=== PATIENT | female | born 1970 | race Caucasian/White ===

== ENCOUNTER → 2016-09-15 | Outpatient (CLI) | payer BC | END | disposition home or self-care (01) | LOC: LABWHC1 11:39 | PROVIDERS: ATTEND Internal Medicine Endocrinology, Diabetes & Metabolism | DX: R53.83 Other fatigue (principal) | CPT/HCPCS: 36415; 82024; 82533; 82607; 84146 ==

== ENCOUNTER → 2017-01-30 | Outpatient (CLI) | payer BC | END | disposition home or self-care (01) | LOC: LABWHC1 09:51 | PROVIDERS: ATTEND Internal Medicine Endocrinology, Diabetes & Metabolism | DX: R53.83 Other fatigue (principal) | CPT/HCPCS: 36415; 82024; 82533; 84146; 84443 ==

== ENCOUNTER → 2017-02-09 | Outpatient (CLI) | payer BC ==
--- NOTE | 2017-02-11 09:01 | MM ---
Reason for exam: screening (asymptomatic). Last mammogram was performed 1 year ago. History: Patient is postmenopausal. Took hormonal contraceptives for 7 years beginning at age 18. Physical Findings: A clinical breast exam by your physician is recommended on an annual basis and results should be correlated with mammographic findings. MG Screening Mammo w CAD Bilateral CC and MLO view(s) were taken. Prior study comparison: February 08, 2016, bilateral MG screening mammo w CAD. November 19, 2014, bilateral MG screening mammo w CAD. The breast tissue is heterogeneously dense. This may lower the sensitivity of mammography. No significant changes when compared with prior studies. ASSESSMENT: Negative, BI-RAD 1 RECOMMENDATION: Routine screening mammogram of both breasts in 1 year.
== END | disposition home or self-care (01) ==
LOC: RADMAMWWP 14:42
PROVIDERS: ATTEND Obstetrics & Gynecology
DX: Z12.31 Encounter for screening mammogram for malignant neoplasm of breast (principal)

== ENCOUNTER → 2017-12-14 | Outpatient (CLI) | payer BC ==
--- NOTE | 2017-12-14 08:52 | CT ---
EXAMINATION TYPE: CT abdomen wo con DATE OF EXAM: 12/14/2017 COMPARISON: 04/29/2013 HISTORY: 47-year-old female with abdominal pain TECHNIQUE: Contiguous axial scanning of the abdomen without IV contrast. Coronal and sagittal reconst ructions performed. CT DLP: 609.20 mGycm Automated exposure control for dose reduction was used. FINDINGS: Heart normal size without pericardial effusion. Lung bases clear without pleural effusion. Liver enlarged measuring 20.2 cm. Noncontrast appearance of the liver, adrenal glands, spleen, and pa ncreas otherwise show no gross abnormality. There is bilateral nephrolithiasis with 6 calculi on the right, largest measuring 7 mm. There are 3 c alculi on the left, largest measuring 5 mm. No hydronephrosis. Similar extrarenal pelvis on the left. No dilated small bowel, free fluid, or free air. Scattered nonenlarged mesenteric lymph nodes are dem onstrated. The previously seen inflammation along the left-sided jejunum has resolved. Mild stool. No pericolonic inflammatory change seen along the visualized portions. There is some mild fat stranding in the left periumbilical subcutaneous fat. For example, reference a xial image 50. Bones: Mild degenerative changes SI joints. There is a transitional lumbosacral segment noted. No oss eous destructive process. IMPRESSION: 1. HEPATOMEGALY (20.2 CM). 2. BILATERAL NONOBSTRUCTIVE NEPHROLITHIASIS MEASURING UP TO 7 MM ON THE RIGHT AND 5 MM ON THE LEFT. 3. SOME MILD FAT STRANDING, POSSIBLE BRUISING OR MILD CELLULITIS IN THE LEFT PARAUMBILICAL SUBCUTANEO US ADIPOSE TISSUES. 4. OTHERWISE, NONCONTRAST CT OF THE ABDOMEN SHOWS NO ACUTE INFLAMMATORY PROCESS TO EXPLAIN THE PATIEN T'S SYMPTOMS.
== END | disposition home or self-care (01) ==
LOC: RADCTMAIN 06:48
PROVIDERS: ATTEND Family Medicine
DX: N20.0 Calculus of kidney (principal); R16.0 Hepatomegaly, not elsewhere classified
CPT/HCPCS: 74150

== ENCOUNTER → 2018-02-15 | Outpatient (CLI) | payer BC ==
--- NOTE | 2018-02-17 13:16 | MM ---
Reason for exam: screening (asymptomatic). Last mammogram was performed 1 year ago. History: Took hormonal contraceptives for 7 years beginning at age 18. Physical Findings: A clinical breast exam by your physician is recommended on an annual basis and results should be correlated with mammographic findings. MG 3D Screening Mammo W/Cad Bilateral CC and MLO view(s) were taken. Prior study comparison: February 09, 2017, bilateral MG screening mammo w CAD. February 08, 2016, bilateral MG screening mammo w CAD. There are scattered fibroglandular densities. No significant changes when compared with prior studies. ASSESSMENT: Benign, BI-RAD 2 RECOMMENDATION: Routine screening mammogram of both breasts in 1 year.
== END | disposition home or self-care (01) ==
LOC: RADMAMWWP 13:11
PROVIDERS: ATTEND Obstetrics & Gynecology
DX: Z12.31 Encounter for screening mammogram for malignant neoplasm of breast (principal)
CPT/HCPCS: 77063; 77067

== ENCOUNTER → 2018-02-25 | Outpatient (CLI) | payer BC ==
--- NOTE | 2018-02-25 15:47 | CT ---
EXAMINATION TYPE: CT brain wo con DATE OF EXAM: 02/25/2018 COMPARISON: None HISTORY: Headache CT DLP: 1052.[address] of the brain was performed. The ventricles, basal cisterns and sulci overlying the cerebral convexities demonstrate a normal appe arance. There is no evidence for intracranial hemorrhage or sulcal effacement. No mass effects are seen. Osseous calvarium is intact. If symptoms persist consider MRI as clinically warranted. IMPRESSION: 1. No acute intracranial process is seen at this time.
== END | disposition home or self-care (01) ==
LOC: RADCTMAIN 15:14
PROVIDERS: ATTEND Family Medicine
DX: R51 Headache (principal)
CPT/HCPCS: 70450

== ENCOUNTER → 2018-03-01 | Outpatient (CLI) | payer BC ==
--- NOTE | 2018-03-01 08:59 | US ---
EXAMINATION TYPE: US abdomen complete DATE OF EXAM: 03/01/2018 COMPARISON: 08/22/2009 CLINICAL HISTORY: R16.0 hepatomegaly, not elsewhere classified. EXAM MEASUREMENTS: Liver Length: 15.8 cm Gallbladder Wall: Surgically absent cm CBD: 0.4 cm Spleen: 9.4 cm Right Kidney: 10.5 x 4.2 x 4.5 cm Left Kidney: 11.4 x 5.2 x 5.7 cm Pancreas: Obscured by overlying bowel gas Liver: difficult to penetrate Gallbladder: Surgically absent CBD: wnl Spleen: wnl Right Kidney: No hydronephrosis or masses seen Left Kidney: No hydronephrosis or masses seen Upper IVC: wnl Abd Aorta: wnl IMPRESSION: 1. Postcholecystectomy changes. 2. Liver is increased in echogenicity which can be seen with fatty infiltration, hepatitis or hepatoc ellular disease. Liver measures approximately 15.8 cm. 3. The renal stones noted by recent CT scan are not as well-seen by ultrasound.
== END | disposition home or self-care (01) ==
LOC: RADUSWWP 08:15
PROVIDERS: ATTEND Family Medicine
DX: R16.0 Hepatomegaly, not elsewhere classified (principal); Z90.49 Acquired absence of other specified parts of digestive tract
CPT/HCPCS: 76700

== ENCOUNTER → 2018-06-24 | Outpatient (CLI) | payer BC ==
--- NOTE | 2018-06-24 10:55 | US ---
EXAMINATION TYPE: US transvaginal DATE OF EXAM: 06/24/2018 COMPARISON: CT CLINICAL HISTORY: N85.8 noninflammatory disorders of uterus. Abnormal CT, ABD/Pelvic pain TECHNIQUE: Transvaginal (TV). Transvaginal sonographic images of the pelvis were acquired. Date of LMP: 8 yrs ago, history of ablation EXAM MEASUREMENTS: Uterus: 7.9 x 4.2 x 4.8 cm Endometrial Stripe: 0.3 cm Right Ovary: 6.0 x 3.5 x 3.8 cm Left Ovary: 1.9 x 1.3 x 1.5 cm 1. Uterus: Anteverted Grossly heterogeneous, multiple Nabothian cysts, some simple, some complex 2. Endometrium: Ill-defined consistent with history of ablation 3. Right Ovary: Cyst with septation= 5.1 x 3.5 x 3.2 cm 4. Left Ovary: wnl 5. Bilateral Adnexa: Free Fluid, more right 6. Posterior cul-de-sac: Free fluid Grossly heterogeneous uterus without definite mass visualized, Multiple Nabothian cysts in cervix, Free fluid/ascites within pelvis, possible large cyst right ovary Results called to Mitchell at Dr's office at time of exam IMPRESSION: 1. Diffusely heterogenous uterine myometrium may reflect small leiomyomatous change. 2. Multiple cervical nabothian cysts. 3. Complex cyst right ovary. Follow-up is recommended in 6 weeks.
== END ==
LOC: RADUSWWP 09:57
PROVIDERS: ATTEND Family Medicine
DX: N88.8 Other specified noninflammatory disorders of cervix uteri (principal); N83.201 Unspecified ovarian cyst, right side
CPT/HCPCS: 76830

== ENCOUNTER → 2018-08-23 | Outpatient (CLI) | payer BC ==
--- NOTE | 2018-08-23 10:11 | CT ---
EXAMINATION TYPE: CT abdomen pelvis w con DATE OF EXAM: 08/23/2018 COMPARISON: 06/23/2018 HISTORY: Follow up study for prior abnormal CT. CT DLP: 1293.7 mGycm CONTRAST: CT scan of the abdomen and pelvis is performed with Oral Contrast and with IV Contrast, patient injec kristie with 100 mL of Isovue 300. FINDINGS: LUNG BASES-: No visible nodule. No infiltrate. LIVER/GB: The gallbladder is surgically absent. Decreased attenuation throughout the liver may refl ect fatty liver versus diffuse hepatocellular disease. Correlate clinically. No space occupying hepa tic lesion. Biliary tree is of normal caliber. PANCREAS: No inflammation. No distinct mass. SPLEEN: No splenic enlargement. No lesion seen. ADRENALS: No nodule. No thickening. KIDNEYS/BLADDER: No hydronephrosis. Nonobstructing nephrolithiasis noted bilaterally. No distinct re nal mass. Urinary bladder grossly unremarkable. BOWEL: Normal appendix. Normal bowel caliber. No inflammation. GENITAL ORGANS: Heterogeneity and fullness of the cervix noted. Underlying neoplasm not excluded. Di rect visualization is advised. Uterus and ovaries are unremarkable. LYMPH NODES: No greater than 1cm abdominal or pelvic lymph nodes are appreciated. AORTA: No significant abnormality. OSSEOUS STRUCTURES: No significant abnormality is seen. OTHER: No significant additional abnormality is seen. IMPRESSION: 1. Heterogeneity and fullness of the cervix noted. Underlying neoplasm not excluded. Direct visualiza tion is advised. 2. Fatty liver versus diffuse hepatocellular disease. 3. Nonobstructing nephrolithiasis.
== END | disposition home or self-care (01) ==
LOC: RADCTMAIN 08:07
DX: N20.0 Calculus of kidney (principal); N88.8 Other specified noninflammatory disorders of cervix uteri
CPT/HCPCS: 74177; Q9967

== ENCOUNTER → 2019-02-28 | Outpatient (CLI) | payer BC ==
--- NOTE | 2019-03-01 13:49 | MM ---
Reason for exam: screening (asymptomatic). Last mammogram was performed 1 year ago. History: Took hormonal contraceptives for 7 years beginning at age 18. Physical Findings: A clinical breast exam by your physician is recommended on an annual basis and results should be correlated with mammographic findings. MG 3D Screening Mammo W/Cad Bilateral CC and MLO view(s) were taken. Prior study comparison: February 15, 2018, bilateral MG 3d screening mammo w/cad. February 09, 2017, bilateral MG screening mammo w CAD. The breast tissue is heterogeneously dense. This may lower the sensitivity of mammography. There is no discrete abnormality. No significant changes when compared with prior studies. ASSESSMENT: Negative, BI-RAD 1 RECOMMENDATION: Routine screening mammogram of both breasts in 1 year.
== END | disposition home or self-care (01) ==
LOC: RADMAMWWP 12:30
PROVIDERS: ATTEND Obstetrics & Gynecology
DX: Z12.31 Encounter for screening mammogram for malignant neoplasm of breast (principal)
CPT/HCPCS: 77063; 77067

== ENCOUNTER 2019-11-22 11:47 | Observation (INO) | payer BC ==
[2019-11-22] MEDS ORDERED: ONDANSETRON 4 MG/2 ML VIAL IVP STA ×2 (12:12→14:45)
[2019-11-22] MEDS ORDERED: SODIUM CHLORIDE 0.9% 1,000 ML IV STA (12:12)
[2019-11-22] MEDS ORDERED: MORPHINE SULFATE 4 MG/ML SYRINGE IV STA (12:12)
--- NOTE | 2019-11-22 12:22 | ED ---
General Adult HPI - General Chief complaint: Abdominal Pain Stated complaint: abd pain Time Seen by Provider: 11/22/19 12:01 Source: patient, RN notes reviewed, old records reviewed Mode of arrival: ambulatory Limitations: no limitations - History of Present Illness Initial comments: 49-year-old female presents for evaluation of abdominal pain, nausea vomiting and diarrhea. Patient's symptoms began yesterday with diarrhea, progressed to vomiting. She has vomited multiple times over the past 24 hours. Her vomiting did subside approximately 12 hours prior to arrival today. She's had persistent diarrhea which she describes as watery. No rectal bleeding. Abdominal pain is predominantly generalized and right upper quadrant. She has previous history of appendectomy, cholecystectomy. Denies fever. She has been taking Zofran and Tylenol with minimal improvement in symptoms. She had seen her primary care physician who sent her to the emergency department today. - Related Data Home Medications Medication Instructions Recorded Confirmed ALPRAZolam [Xanax] 0.25 mg PO BID PRN 11/22/19 11/22/19 Albuterol Inhaler [Ventolin Hfa 2 puff INHALATION RT-QID PRN 11/22/19 11/22/19 Inhaler] Atorvastatin Calcium [Lipitor] 10 mg PO HS 11/22/19 11/22/19 Butalb/Acetaminophen/Caffeine 1 tab PO Q6H PRN 11/22/19 11/22/19 [Esgic 50-325-40 mg Tablet] Citalopram Hydrobromide [CeleXA] 40 mg PO DAILY 11/22/19 11/22/19 Fluticasone Nasal [place] [Flonase 2 spr EA NOSTRIL DAILY PRN 11/22/19 11/22/19 Nasal [place]] Hydrochlorothiazide [Hydrodiuril] 12.5 mg PO DAILY 11/22/19 11/22/19 Levocetirizine Dihydrochloride 5 mg PO DAILY 11/22/19 11/22/19 [Xyzal] Levothyroxine Sodium [Tirosint] 100 mcg PO DAILY 11/22/19 11/22/19 Lisinopril [Zestril] 10 mg PO BID 11/22/19 11/22/19 Montelukast Sodium [Singulair] 10 mg PO HS 11/22/19 11/22/19 Ondansetron Odt [Zofran Odt] 8 mg PO Q8HR PRN 11/22/19 11/22/19 Allergies Allergy/AdvReac Type Severity Reaction Status Date / Time clarithromycin [From Biaxin] Allergy Abdominal Verified 11/22/19 14:13 Pain Influenza Virus Vaccines Allergy Dyspnea Verified 11/22/19 14:13 latex Allergy Rash/Hives Verified 11/22/19 14:13 Penicillins Allergy Rash/Hives Verified 11/22/19 14:13 Review of Systems ROS Statement: Those systems with pertinent positive or pertinent negative responses have been documented in the HPI. ROS Other: All systems not noted in ROS Statement are negative. Past Medical History Past Medical History: Asthma Additional Past Medical History / Comment(s): ileus, ovarian cysts with ascites. History of Any Multi-Drug Resistant Organisms: None Reported Past Surgical History: Appendectomy, Cholecystectomy, Tubal Ligation Additional Past Surgical History / Comment(s): uterine ablation, carpal tunnel sx, Past Psychological History: Depression Smoking Status: Never smoker Past Alcohol Use History: None Reported Past Drug Use History: None Reported General Exam Limitations: no limitations General appearance: alert, in no apparent distress Head exam: Present: atraumatic, normocephalic Eye exam: Present: normal appearance, PERRL ENT exam: Present: mucous membranes dry Neck exam: Present: normal inspection. Absent: tenderness, meningismus Respiratory exam: Present: normal lung sounds bilaterally. Absent: respiratory distress, wheezes, rales Cardiovascular Exam: Present: regular rate, normal rhythm GI/Abdominal exam: Present: soft, tenderness (Mild epigastric tenderness to palpation), normal bowel sounds. Absent: distended, guarding, rebound Extremities exam: Present: normal inspection, normal capillary refill. Absent: pedal edema, calf tenderness Neurological exam: Present: alert, oriented X3, CN II-XII intact. Absent: motor sensory deficit Psychiatric exam: Present: normal affect, normal mood Skin exam: Present: warm, dry, intact. Absent: cyanosis, diaphoretic Course Vital Signs 11/22/19 11/22/19 11/22/19 11:49 13:12 15:57 Temperature 98.1 F 97.7 F Pulse Rate 102 H 86 80 Respiratory 18 18 18 Rate Blood Pressure 116/74 126/66 119/57 O2 Sat by Pulse 97 95 97 Oximetry - Reevaluation(s) Reevaluation #1: 11/22/19 12:22 Patient does have a ride, she is not driving. Medical Decision Making - Medical Decision Making 49-year-old female with abdominal pain, nausea vomiting diarrhea. CT performed, showing a severe enteritis, with some thickening in the bowel as well as ascites. Patient has leukocytosis which may be reactive at 14. Normal electro lytes. She will be admitted for IV hydration, symptom control. Case discussed with Dr. Monk who will admit. - Lab Data Result diagrams: 11/22/19 12:18 11/22/19 12:18 Lab Results 11/22/19 11/22/19 11/22/19 Range/Units 12:18 12:18 12:18 WBC 14.2 H (3.8-10.6) k/uL RBC 4.76 (3.80-5.40) m/uL Hgb 14.5 (11.4-16.0) gm/dL Hct 43.3 (34.0-46.0) % MCV 90.9 (80.0-100.0) fL MCH 30.4 (25.0-35.0) pg MCHC 33.4 (31.0-37.0) g/dL RDW 12.9 (11.5-15.5) % Plt Count 340 (150-450) k/uL Neutrophils % 77 % Lymphocytes % 16 % Monocytes % 5 % Eosinophils % 1 % Basophils % 0 % Neutrophils # 10.9 H (1.3-7.7) k/uL Lymphocytes # 2.3 (1.0-4.8) k/uL Monocytes # 0.7 (0-1.0) k/uL Eosinophils # 0.1 (0-0.7) k/uL Basophils # 0.0 (0-0.2) k/uL Sodium 136 L (137-145) mmol/L Potassium 4.2 (3.5-5.1) mmol/L Chloride 103 (98-107) mmol/L Carbon Dioxide 21 L (22-30) mmol/L Anion Gap 12 mmol/L BUN 21 H (7-17) mg/dL Creatinine 0.90 (0.52-1.04) mg/dL Est GFR (CKD-EPI)AfAm 89 (>60 ml/min/1.73 sqM) Est GFR (CKD-EPI)NonAf 77 (>60 ml/min/1.73 sqM) Glucose 123 H (74-99) mg/dL Plasma Lactic Acid [place] 1.5 (0.7-2.0) mmol/L Calcium 9.5 (8.4-10.2) mg/dL Total Bilirubin 0.7 (0.2-1.3) mg/dL AST 32 (14-36) U/L ALT 23 (4-34) U/L Alkaline Phosphatase 118 (38-126) U/L Total Protein 7.6 (6.3-8.2) g/dL Albumin 4.7 (3.5-5.0) g/dL Amylase 48 (30-110) U/L Lipase 183 (23-300) U/L Urine Color Urine Appearance (Clear) Urine pH (5.0-8.0) Ur Specific [place] (1.001-1.035) Urine Protein (Negative) Urine Glucose (UA) (Negative) Urine Ketones (Negative) Urine Blood (Negative) Urine Nitrite (Negative) Urine Bilirubin (Negative) Urine Urobilinogen (<2.0) mg/dL Ur Leukocyte Esterase (Negative) Urine RBC (0-5) /hpf Urine WBC (0-5) /hpf Ur Squamous Epith Cells (0-4) /hpf Urine Bacteria (None) /hpf Hyaline Casts (0-2) /lpf Urine Mucus (None) /hpf // Range/Units 12:37 WBC (3.8-10.6) k/uL RBC (3.80-5.40) m/uL Hgb (11.4-16.0) gm/dL Hct (34.0-46.0) % MCV (80.0-100.0) fL MCH (25.0-35.0) pg MCHC (31.0-37.0) g/dL RDW (11.5-15.5) % Plt Count (150-450) k/uL Neutrophils % % Lymphocytes % % Monocytes % % Eosinophils % % Basophils % % Neutrophils # (1.3-7.7) k/uL Lymphocytes # (1.0-4.8) k/uL Monocytes # (0-1.0) k/uL Eosinophils # (0-0.7) k/uL Basophils # (0-0.2) k/uL Sodium (137-145) mmol/L Potassium (3.5-5.1) mmol/L Chloride (98-107) mmol/L Carbon Dioxide (22-30) mmol/L Anion Gap mmol/L BUN (7-17) mg/dL Creatinine (0.52-1.04) mg/dL Est GFR (CKD-EPI)AfAm (>60 ml/min/1.73 sqM) Est GFR (CKD-EPI)NonAf (>60 ml/min/1.73 sqM) Glucose (74-99) mg/dL Plasma Lactic Acid [place] (0.7-2.0) mmol/L Calcium (8.4-10.2) mg/dL Total Bilirubin (0.2-1.3) mg/dL AST (14-36) U/L ALT (4-34) U/L Alkaline Phosphatase (38-126) U/L Total Protein (6.3-8.2) g/dL Albumin (3.5-5.0) g/dL Amylase (30-110) U/L Lipase (23-300) U/L Urine Color Yellow Urine Appearance Cloudy H (Clear) Urine pH 5.5 (5.0-8.0) Ur Specific [place] 1.021 (1.001-1.035) Urine Protein Trace H (Negative) Urine Glucose (UA) Negative (Negative) Urine Ketones Trace H (Negative) Urine Blood Trace H (Negative) Urine Nitrite Negative (Negative) Urine Bilirubin Negative (Negative) Urine Urobilinogen <2.0 (<2.0) mg/dL Ur Leukocyte Esterase Large H (Negative) Urine RBC 11 H (0-5) /hpf Urine WBC 6 H (0-5) /hpf Ur Squamous Epith Cells 17 H (0-4) /hpf Urine Bacteria Few H (None) /hpf Hyaline Casts 1 (0-2) /lpf Urine Mucus Occasional H (None) /hpf Disposition Clinical Impression: Abdominal pain, Enteritis, Ascites Disposition: ADMITTED IP TO THIS HOSP Condition: Stable Is patient prescribed a controlled substance at d/c from ED?: No Referrals: Martin Sofia MD [Primary Care Provider] - 1-2 days Time of Disposition: 16:16
[2019-11-22 12:37] LABS: Basophils % (A) 0 %; Eosinophils # (A) 0.1 k/uL (0-0.7); Eosinophils % (A) 1 %; HCT 43.3 % (34.0-46.0); HGB 14.5 gm/dL (11.4-16.0); Lymphocytes # (A) 2.3 k/uL (1.0-4.8); Lymphocytes % (A) 16 %; MCH 30.4 pg (25.0-35.0); MCHC 33.4 g/dL (31.0-37.0); MCV 90.9 fL (80.0-100.0); Mean Platelet Volume 7.7; Monocytes # (A) 0.7 k/uL (0-1.0); Monocytes % (A) 5 %; Neutrophils # (A) 10.9 k/uL (1.3-7.7); Neutrophils % (A) 77 %; Platelet Count 340 k/uL (150-450); RBC 4.76 m/uL (3.80-5.40); RDW 12.9 % (11.5-15.5); WBC 14.2 k/uL (3.8-10.6)
[2019-11-22 12:46] LABS: Albumin 4.7 g/dL (3.5-5.0); Calcium 9.5 mg/dL (8.4-10.2); Potassium 4.2 mmol/L (3.5-5.1); Total Bilirubin 0.7 mg/dL (0.2-1.3); Total Protein 7.6 g/dL (6.3-8.2)
--- NOTE | 2019-11-22 12:58 | XR ---
EXAMINATION TYPE: XR KUB DATE OF EXAM: 11/22/2019 COMPARISON: NONE HISTORY: Pain TECHNIQUE: Single supine KUB image of the abdomen is obtained FINDINGS: Small bowel demonstrates no evidence for dilatation or air fluid levels. Gas and fecal material is seen in non-distended colon. No convincing evidence for pneumoperitoneum. Suggestion of small bilateral renal calculi. The lung bases are clear. The osseous structures are intact. IMPRESSION: 1. Overall nonobstructive bowel gas pattern. Small bilateral renal calculi suggested.
[2019-11-22] MEDS ORDERED: MORPHINE SULFATE 4 MG/ML SYRINGE IVP STA (14:45)
[2019-11-22 14:48] LABS: Appearance,Urine Cloudy (Clear); Bacteria,Urine Few /hpf; Bilirubin,Urine Negative (Negative); Blood,Urine Trace (Negative); Color,Urine Yellow; Glucose,Urine (UA) Negative (Negative); Hyaline Casts,Urine 1 /lpf (0-2); Ketones,Urine Trace (Negative); Leukocyte Esterase,Urine Large (Negative); Mucus,Urine Occasional /hpf; Nitrite,Urine Negative (Negative); PH, Urine 5.5 (5.0-8.0); Protein,Urine Trace (Negative); RBC,Urine 11 /hpf (0-5); Specific Gravity,Urine 1.021 (1.001-1.035); Squamous Epithelial Cell,Urine 17 /hpf (0-4); Urobilinogen,Urine <2.0 mg/dL (<2.0); WBC,Urine 6 /hpf (0-5)
--- NOTE | 2019-11-22 14:55 | CT ---
EXAMINATION TYPE: CT abdomen pelvis w con DATE OF EXAM: 11/22/2019 COMPARISON: 08/23/2018 HISTORY: 49-year-old female with abdominal pain TECHNIQUE: Contiguous axial scanning of the abdomen and pelvis following administration of 100 ml Iso dominique 300 IV contrast. Delayed images through the kidneys and coronal/sagittal reconstructions perform ed. CT DLP: 1543.1 mGycm Automated exposure control for dose reduction was used. FINDINGS: Heart normal size without pericardial effusion. Lung bases clear without pleural effusion. Liver enlarged at 21.5 cm with low-attenuation compatible with fatty infiltration. Portal venous syst em is patent. No biliary ductal dilatation. Cholecystectomy clips. Adrenal glands, spleen, and pancreas appear within normal limits. Bilateral nephrolithiasis with approximately 6 calculi on the right measuring up to 4 mm and 3 on the left measuring up to 6 mm. No hydronephrosis. Unable to clearly identify the appendix. Multiple prominent fluid-filled small bowel loops are presen t throughout with areas of mesenteric hyperemia and scattered mesenteric edema, interloop fluid, and mild ascites. Overall moderate ascites extending into the pelvis. Liquid stool in the right-sided colon. No significant burden. No pericolonic inflammatory change. No mesenteric or retroperitoneal lymphadenopathy. Uterus anteverted. Some foci of air are present adjacent to the external cervical os. Suggestion of m ultiple cervical nabothian cysts. Small left ovary is visualized. Bones: L5 sacralization is noted. Posterior disc bulge at L3-L4 mildly narrowing the spinal canal. IMPRESSION: 1. PROMINENT FLUID-FILLED SMALL BOWEL LOOPS THROUGHOUT WITH AREAS OF MESENTERIC HYPEREMIA, SCATTERED MESENTERIC EDEMA, INTERLOOP FLUID, AND MILD ASCITES. MODERATE ASCITES COLLECTS INTO THE PELVIS. THERE IS LIQUID STOOL IN THE RIGHT SIDE OF THE COLON. CORRELATE FOR A NONSPECIFIC, SIGNIFICANT ENTERITIS. 2. THE APPENDIX COULD NOT BE VISUALIZED. 3. BILATERAL NEPHROLITHIASIS MEASURING UP TO 6 MM. NO HYDRONEPHROSIS. 4. HEPATOMEGALY (21.5 CM) WITH HEPATIC STEATOSIS.
[2019-11-22] MEDS ORDERED: HYDROmorphone 0.5 MG/0.5 ML SYRINGE IVP PRN (16:14)
[2019-11-22] MEDS ORDERED: NALOXONE 0.4 MG/ML 1 ML VIAL IV PRN (16:14)
[2019-11-22] MEDS: SODIUM CHLORIDE 0.9% 1,000 ML IV SCH (16:32)
[2019-11-22] MEDS ORDERED: ALPRAZolam 0.25 MG TAB PO PRN (19:19)
[2019-11-22] MEDS ORDERED: FLUTICASONE 50MCG/SPRAY NASAL 16GM EA NOSTRIL PRN (19:19)
[2019-11-22] MEDS ORDERED: BUTALB/APAP/CAFF 50-325-40MG TAB PO PRN (19:19)
[2019-11-22] MEDS ORDERED: ALBUTEROL NEBULIZED 2.5 MG/3 ML INHALATION PRN (19:19)
[2019-11-22] MEDS: ATORVASTATIN 10 MG TAB PO SCH (21:55)
[2019-11-22] MEDS: MONTELUKAST 10 MG TAB PO SCH (21:55)
[2019-11-22] MEDS: lisinopriL 10 MG TAB PO SCH (21:56)
[2019-11-22] MEDS: ONDANSETRON 4 MG/2 ML VIAL IVP PRN (21:57)
[2019-11-22] MEDS ORDERED: TEMAZEPAM 15 MG CAP PO PRN (23:36)
[2019-11-23] MEDS: PANTOPRAZOLE 40 MG/10 ML VIAL IVP SCH ×2 (02:12→08:09)
[2019-11-23] MEDS: metroNIDAZOLE-NS PMX 500 MG in SALINE 1 100ML.BAG IVPB SCH ×3 (02:12→15:59)
[2019-11-23] MEDS: SODIUM CHLORIDE 0.9% 1,000 ML IV SCH ×2 (02:21→20:21)
--- NOTE | 2019-11-23 03:29 | HP ---
HISTORY AND PHYSICAL DATE OF SERVICE: 11/22/2019 CHIEF COMPLAINT: Abdominal pain. HISTORY OF PRESENT ILLNESS: This 49-year-old woman with a past medical history of multiple medical problems including asthma, hypertension, history of pneumonia, ileus, ovarian cysts, ascites, ovarian rupture bleeding, C difficile being followed by Dr. Martin Sofia in the outpatient setting coming in with abdominal pain which is mostly in the lower part of the abdomen. The patient also had diarrhea. The patient also had some vomiting multiple times. The patient came to [facility] and admitted for further evaluation and treatment. The patient also had some mild abdominal distention. The white count is elevated to 14.2. UA showed some evidence of UTI. The patient also had abdomen and pelvis CAT scan which showed prominent fluid-filled small bowel loops throughout the areas of mesenteric hyperemia, scattered mesenteric edema, interloop fluid and mild ascites. Moderate ascites was also in the pelvis with liquid stools in the right side of the colon, correlate nonspecific significant enteritis was noted and appendix was not visualized. Bilateral nephrolithiasis also noted with no hydronephrosis. Hepatomegaly also noted with hepatic steatosis. Patient admitted for further evaluation. There is no history of fever, rigors. No history of headache, loss or consciousness. PAST MEDICAL HISTORY: Asthma, hypertension, pneumonia, ileus, ovarian cyst rupture, C diff. MEDICATIONS: Home medications are: 1. Ventolin. 2. Zofran. 3. Tirosint. 4. Singulair. 5. Zestril. 6. Xyzal. 7. HydroDIURIL. 8. Flonase. 9. Celexa. 10.Butalbital. 11.Lipitor. 12.Xanax. Doses are reviewed. ALLERGIES: BIAXIN, INFLUENZA, LATEX, PENICILLIN. FAMILY HISTORY: No history of strokes or heart disease. SOCIAL HISTORY: No history of smoking. No history of alcohol intake. REVIEW OF SYSTEMS: ENT: No diminished hearing or diminished vision. CARDIOVASCULAR SYSTEM: No angina. RESPIRATORY SYSTEM: No cough or hemoptysis. GI: As mentioned earlier. : As mentioned earlier. NERVOUS SYSTEM: No numbness or weakness. ALLERGY/IMMUNOLOGY: Asthma. MUSCULOSKELETAL: As mentioned earlier. HEMATOLOGY: No history of anemia. ENDOCRINE: No history of diabetes mellitus or hypothyroidism. CONSTITUTIONAL: As mentioned earlier. DERMATOLOGY: Negative. RHEUMATOLOGY: Negative. PSYCHIATRY: As mentioned earlier. PHYSICAL EXAMINATION: The patient is alert and oriented x3. Pulse is 83 blood pressure 107/60, respiration 18, temperature 98.2, pulse ox 96% on room air. HEENT: Conjunctivae normal. Oral mucosa moist. NECK: No jugular venous distention. No carotid bruit. No lymph node enlargement. CARDIOVASCULAR: S1, S2 muffled. RESPIRATORY: Breath sounds diminished at the bases. No rhonchi, no crackles. ABDOMEN: Soft, mild diffuse distention, mild diffuse tenderness in the lower part. No guarding. No rigidity. No mass palpable. No ascites clinically. Bowel sounds diminished. LEGS: No edema, no swelling. NERVOUS SYSTEM: Higher function as mentioned earlier. Moves all 4 limbs. No focal motor or sensory deficits. LYMPHATICS: No lymphadenopathy of the neck, axillae or groin. SKIN: No ulcer, rash or bleeding. JOINTS: No active deforming arthropathy. LABS: WBC 14.2. Sodium 136 and glucose 123. UA noted. ASSESSMENT: 1. Abdominal distention possible acute enteritis. 2. Acute urinary tract infection, present on admission. 3. History of previous ileus. 4. History of asthma. 5. Hypertension. 6. History of pneumonia. 7. History of ovarian cyst. 8. History of ovarian rupture bleeding. 9. History of Clostridium difficile colitis. 10.History of cholecystectomy. 11.History of appendectomy. 12.History of anxiety, depression. RECOMMENDATIONS AND DISCUSSION: This 49-year-old woman presented with multiple complex medical issues. At this time, I recommend to continue current medications. We will treat the patient empirically with antibiotics. Obtain the cultures. I would also recommend surgical, infectious disease evaluation also. Prognosis guarded because of multiple complex medical issues. Further recommendations to follow. See orders for further details. MMODL / IJN: [id number] /
[2019-11-23] MEDS: LEVOTHYROXINE 100 MCG TAB PO SCH (06:32)
[2019-11-23] MEDS: lisinopriL 10 MG TAB PO SCH ×2 (08:03→20:22)
[2019-11-23] MEDS: LORATADINE 10 MG TAB PO SCH (08:03)
[2019-11-23] MEDS: hydroCHLOROthiazide 12.5 MG CAP PO SCH (08:03)
[2019-11-23] MEDS: CITALOPRAM HYDROBROMIDE 20 MG TAB PO SCH (08:03)
[2019-11-23 08:09] LABS: Basophils % (A) 0 %; Eosinophils # (A) 0.3 k/uL (0-0.7); Eosinophils % (A) 3 %; HCT 34.1 % (34.0-46.0); Lymphocytes # (A) 1.6 k/uL (1.0-4.8); Lymphocytes % (A) 21 %; MCH 31.9 pg (25.0-35.0); MCHC 33.8 g/dL (31.0-37.0); MCV 94.4 fL (80.0-100.0); Mean Platelet Volume 7.5; Monocytes # (A) 0.4 k/uL (0-1.0); Monocytes % (A) 5 %; Neutrophils # (A) 5.3 k/uL (1.3-7.7); Neutrophils % (A) 70 %; Platelet Count 228 k/uL (150-450); RBC 3.61 m/uL (3.80-5.40); WBC 7.6 k/uL (3.8-10.6)
[2019-11-23 08:21] LABS: HGB 11.5 gm/dL (11.4-16.0)
[2019-11-23 08:27] LABS: African American GFR (CKD) >90 (>60 ml/min/1.73 sqM); Anion Gap 5 mmol/L; Blood Urea Nitrogen 13 mg/dL (7-17); Calcium 8.4 mg/dL (8.4-10.2); Carbon Dioxide 26 mmol/L (22-30); Chloride 106 mmol/L (98-107); Glucose 105 mg/dL (74-99); Non-African American GFR(CKD) 86 (>60 ml/min/1.73 sqM); Sodium 137 mmol/L (137-145)
[2019-11-23] MEDS: ONDANSETRON 4 MG/2 ML VIAL IVP PRN (15:30)
--- NOTE | 2019-11-23 15:52 | P.GSCN ---
History of Present Illness Consult date: 11/23/19 Reason for Consult: abdominal pain History of present illness: this a 42 seminal female who was atted through the emergenc with complaints of a n nausea vomiting and diarrnt underwent CAT scan shave evidence of enteritis. Patient states that her abdoal pain symptoms have improved today. Past Medical History Past Medical History: Asthma, Hypertension, Pneumonia Additional Past Medical History / Comment(s): ileus, ovarian cysts with ascites, ovarian rupture bleeding. History of Any Multi-Drug Resistant Organisms: C-DIFF Year Discovered:: 2009 MDRO Source:: stool Past Surgical History: Appendectomy, Cholecystectomy, Tubal Ligation Additional Past Surgical History / Comment(s): uterine ablation, carpal tunnel sx, Additional Past Anesthesia/Blood Transfusion Reaction / Comm: issues waking up afterwards Past Psychological History: Anxiety, Depression Smoking Status: Never smoker Past Alcohol Use History: None Reported Past Drug Use History: None Reported Medications and Allergies Home Medications Medication Instructions Recorded Confirmed Type ALPRAZolam [Xanax] 0.25 mg PO BID PRN 11/22/19 11/22/19 History Albuterol Inhaler [Ventolin Hfa 2 puff INHALATION RT-QID PRN 11/22/19 11/22/19 History Inhaler] Atorvastatin Calcium [Lipitor] 10 mg PO HS 11/22/19 11/22/19 History Butalb/Acetaminophen/Caffeine 1 tab PO Q6H PRN 11/22/19 11/22/19 History [Esgic 50-325-40 mg Tablet] Citalopram Hydrobromide [CeleXA] 40 mg PO DAILY 11/22/19 11/22/19 History Fluticasone Nasal [place] [Flonase 2 spr EA NOSTRIL DAILY PRN 11/22/19 11/22/19 History Nasal [place]] Hydrochlorothiazide [Hydrodiuril] 12.5 mg PO DAILY 11/22/19 11/22/19 History Levocetirizine Dihydrochloride 5 mg PO DAILY 11/22/19 11/22/19 History [Xyzal] Levothyroxine Sodium [Tirosint] 100 mcg PO DAILY 11/22/19 11/22/19 History Lisinopril [Zestril] 10 mg PO BID 11/22/19 11/22/19 History Montelukast Sodium [Singulair] 10 mg PO HS 11/22/19 11/22/19 History Ondansetron Odt [Zofran Odt] 8 mg PO Q8HR PRN 11/22/19 11/22/19 History Allergies Allergy/AdvReac Type Severity Reaction Status Date / Time clarithromycin [From Biaxin] Allergy Abdominal Verified 11/22/19 14:13 Pain Influenza Virus Vaccines Allergy Dyspnea Verified 11/22/19 14:13 latex Allergy Rash/Hives Verified 11/22/19 14:13 Penicillins Allergy Rash/Hives Verified 11/22/19 14:13 Surgical - Exam Vital Signs Temp Pulse Resp BP Pulse Ox 98.1 F 102 H 18 116/74 97 11/22/19 11:49 11/22/19 11:49 11/22/19 11:49 11/22/19 11:49 11/22/19 11:49 - General well developed, well nourished, no distress - Eyes PERRL - ENT normal pinna - Neck no masses - Respiratory normal expansion - Cardiovascular Rhythm: regular - Abdomen mild tenderness Abdomen: soft Results - Labs 11/23/19 07:42 11/23/19 07:42 Abnormal Lab Results - Last 24 Hours (Table) 11/22/19 11/23/19 11/23/19 Range/Units 22:31 07:42 07:42 RBC 3.61 L (3.80-5.40) m/uL Glucose 105 H (74-99) mg/dL C-Reactive Protein 14.1 H (<10.0) mg/L Microbiology - Last 24 Hours (Table) 11/22/19 12:37 Urine Culture - Preliminary Urine,Clean Catch Diabetes panel 11/23/19 Range/Units 07:42 Sodium 137 (137-145) mmol/L Potassium 4.0 (3.5-5.1) mmol/L Chloride 106 (98-107) mmol/L Carbon Dioxide 26 (22-30) mmol/L BUN 13 (7-17) mg/dL Creatinine 0.82 (0.52-1.04) mg/dL Glucose 105 H (74-99) mg/dL Calcium 8.4 (8.4-10.2) mg/dL Calcium panel 11/23/19 Range/Units 07:42 Calcium 8.4 (8.4-10.2) mg/dL Pituitary panel 11/23/19 Range/Units 07:42 Sodium 137 (137-145) mmol/L Potassium 4.0 (3.5-5.1) mmol/L Chloride 106 (98-107) mmol/L Carbon Dioxide 26 (22-30) mmol/L BUN 13 (7-17) mg/dL Creatinine 0.82 (0.52-1.04) mg/dL Glucose 105 H (74-99) mg/dL Calcium 8.4 (8.4-10.2) mg/dL Adrenal panel 11/23/19 Range/Units 07:42 Sodium 137 (137-145) mmol/L Potassium 4.0 (3.5-5.1) mmol/L Chloride 106 (98-107) mmol/L Carbon Dioxide 26 (22-30) mmol/L BUN 13 (7-17) mg/dL Creatinine 0.82 (0.52-1.04) mg/dL Glucose 105 H (74-99) mg/dL Calcium 8.4 (8.4-10.2) mg/dL - Imaging CT scan - abdomen: report reviewed (enteritis) Assessment and Plan Assessment: enteritis. Patient's symptoms h improved. She'll c receive fluid hydratind clear liquids.
[2019-11-23] MEDS: ACETAMINOPHEN TAB 325 MG TAB PO PRN (16:23)
[2019-11-23] MEDS: MONTELUKAST 10 MG TAB PO SCH (20:21)
[2019-11-23] MEDS: ATORVASTATIN 10 MG TAB PO SCH (20:22)
--- NOTE | 2019-11-23 20:40 | PN ---
PROGRESS NOTE DATE OF SERVICE: 11/23/2019 This 49-year-old woman who was admitted with abdominal distention and acute enteritis is being closely monitored. Empiric antibiotics initiated. No chest pain. No palpitations. No fever. PHYSICAL EXAMINATION: Alert and oriented x3. Pulse 77, blood pressure 109/60, respiration 15, temperature 98.1, pulse ox 97% on room air. HEENT: Conjunctivae normal. NECK: No jugular venous distention. CARDIOVASCULAR SYSTEM: S1, S2 muffled. RESPIRATORY SYSTEM: Breath sounds diminished at the bases. No rhonchi. No crackles. ABDOMEN: Soft. Mild diffuse distention. LEGS: No edema. No swelling. NERVOUS SYSTEM: No focal deficit. LABS: WBC .7, hemoglobin 11.5. UA noted. ASSESSMENT: 1. Abdominal distention, possibly acute enteritis. 2. Acute urinary tract infection, present on admission. 3. History of previous ileus. 4. History of asthma. 5. Hypertension. 6. History of pneumonia. 7. History of ovarian cysts. 8. History of ovarian rupture bleeding. 9. History of Clostridium difficile colitis. 10.History of cholecystectomy. 11.History of appendectomy. 12.History of anxiety, depression. 13.Possible urinary tract infection. RECOMMENDATIONS AND DISCUSSION: I recommend to continue current medications, continue with the monitoring, symptomatic treatment. Empiric antibiotics. Cultures are negative so far. Will continue to monitor. Further recommendations to follow. VIVIANAL / GERBERN: [id number] / MTDD
[2019-11-24] MEDS: metroNIDAZOLE-NS PMX 500 MG in SALINE 1 100ML.BAG IVPB SCH ×2 (00:10→08:30)
[2019-11-24] MEDS: LEVOTHYROXINE 100 MCG TAB PO SCH (06:06)
[2019-11-24 08:23] VITALS: BP 143/83; PULSE 71; RESP 16; TEMP 98.2
[2019-11-24] MEDS: ONDANSETRON 4 MG/2 ML VIAL IVP PRN (08:29)
[2019-11-24] MEDS: hydroCHLOROthiazide 12.5 MG CAP PO SCH (08:30)
[2019-11-24] MEDS: PANTOPRAZOLE 40 MG/10 ML VIAL IVP SCH (08:30)
[2019-11-24] MEDS: CITALOPRAM HYDROBROMIDE 20 MG TAB PO SCH (08:30)
[2019-11-24] MEDS: ACETAMINOPHEN TAB 325 MG TAB PO PRN (08:30)
[2019-11-24] MEDS: LORATADINE 10 MG TAB PO SCH (08:30)
[2019-11-24] MEDS: lisinopriL 10 MG TAB PO SCH (08:31)
--- NOTE | 2019-11-24 09:18 | P.CONS ---
History of Present Illness - Reason for Consult Consult date: 11/23/19 Enteritis Requesting physician: Zen Monk - Chief Complaint Abdominal pain and vomiting 1 day - History of Present Illness Patient is a 49-year-old female presented to hospital with a one-day history of abdominal pain and vomiting and diarrhea, patient did mention that he use some prepackaged chicken to make her sandwich the day before her symptoms started, it started with sudden onset of abdominal pain which has been mostly in the upper abdominal area describing it to be sharp and almost 10 out of 10 in severity with no radiation with associated vomiting patient did vomited a few times and is having some loose stool with no blood or mucus in the stool patient did have some slough but denies high-grade fever with persistent symptoms the patient did present to the hospital on arrival to the patient has been afebrile did have elevated white count of 14,000 CT of abdominal pelvis did shows a small bowel mesenteric hyperemia with small bowel dilatation appendix not seen patient has been admitted to the hospital she was started on Rocephin and Flagyl stool studies has been obtained which is currently pending and infectious disease was consulted for further management of antibiotic therapy Review of Systems Positive point has been mentioned in the HPI rest of the systems are negative Past Medical History Past Medical History: Asthma, Hypertension, Pneumonia Additional Past Medical History / Comment(s): ileus, ovarian cysts with ascites, ovarian rupture bleeding. History of Any Multi-Drug Resistant Organisms: C-DIFF Year Discovered:: 2009 MDRO Source:: stool Past Surgical History: Appendectomy, Cholecystectomy, Tubal Ligation Additional Past Surgical History / Comment(s): uterine ablation, carpal tunnel sx, Additional Past Anesthesia/Blood Transfusion Reaction / Comm: issues waking up afterwards Past Psychological History: Anxiety, Depression Smoking Status: Never smoker Past Alcohol Use History: None Reported Past Drug Use History: None Reported Medications and Allergies Home Medications Medication Instructions Recorded Confirmed Type ALPRAZolam [Xanax] 0.25 mg PO BID PRN 11/22/19 11/22/19 History Albuterol Inhaler [Ventolin Hfa 2 puff INHALATION RT-QID PRN 11/22/19 11/22/19 History Inhaler] Atorvastatin Calcium [Lipitor] 10 mg PO HS 11/22/19 11/22/19 History Butalb/Acetaminophen/Caffeine 1 tab PO Q6H PRN 11/22/19 11/22/19 History [Esgic 50-325-40 mg Tablet] Citalopram Hydrobromide [CeleXA] 40 mg PO DAILY 11/22/19 11/22/19 History Fluticasone Nasal [place] [Flonase 2 spr EA NOSTRIL DAILY PRN 11/22/19 11/22/19 History Nasal [place]] Hydrochlorothiazide [Hydrodiuril] 12.5 mg PO DAILY 11/22/19 11/22/19 History Levocetirizine Dihydrochloride 5 mg PO DAILY 11/22/19 11/22/19 History [Xyzal] Levothyroxine Sodium [Tirosint] 100 mcg PO DAILY 11/22/19 11/22/19 History Lisinopril [Zestril] 10 mg PO BID 11/22/19 11/22/19 History Montelukast Sodium [Singulair] 10 mg PO HS 11/22/19 11/22/19 History Ondansetron Odt [Zofran Odt] 8 mg PO Q8HR PRN 11/22/19 11/22/19 History Allergies Allergy/AdvReac Type Severity Reaction Status Date / Time clarithromycin [From Biaxin] Allergy Abdominal Verified 11/22/19 14:13 Pain Influenza Virus Vaccines Allergy Dyspnea Verified 11/22/19 14:13 latex Allergy Rash/Hives Verified 11/22/19 14:13 Penicillins Allergy Rash/Hives Verified 11/22/19 14:13 Physical Exam Vitals: Vital Signs Temp Pulse Pulse Resp BP BP Pulse Ox 11/23/19 11:59 77 15 11/23/19 08:00 98.1 F 77 15 109/63 97 11/23/19 04:30 97.8 F 78 16 134/71 97 11/23/19 00:00 16 11/22/19 20:00 97.9 F 79 16 103/54 96 11/22/19 19:30 78 18 11/22/19 17:51 98.2 F 83 18 107/60 96 11/22/19 17:45 98.1 F 78 18 99/62 97 11/22/19 15:57 97.7 F 80 18 119/57 97 Intake and Output 11/22/19 11/23/19 11/23/19 22:59 06:59 14:59 Intake Total 1060 120 Balance 1060 120 Intake: Oral 1060 120 Other: Voiding Method Toilet Toilet Toilet # Voids 1 1 Weight 95.708 kg GENERAL DESCRIPTION: Middle-aged female lying in bed, no distress. No tachypnea or accessory muscle of respiration use. HEENT: Shows Pallor , no scleral icterus. Oral mucous membrane is dry. No pharyngeal erythema or thrush NECK: Trachea central, no thyromegaly. LUNGS: Unlabored breathing. Clear to auscultation anteriorly. No wheeze or crackle. HEART: S1, S2, regular rate and rhythm. No loud murmur ABDOMEN: Soft, mild upper abdominal tenderness , no guarding or rigidity, no organomegaly EXTREMITIES: No edema of feet. SKIN: No rash, no masses palpable. NEUROLOGICAL: The patient is awake, alert, oriented x3, mood and affect normal. Results CBC & Chem 7: 11/23/19 07:42 11/23/19 07:42 Labs: Abnormal Lab Results - Last 24 Hours (Table) 11/22/19 11/22/19 11/23/19 Range/Units 12:37 22:31 07:42 RBC 3.61 L (3.80-5.40) m/uL Glucose (74-99) mg/dL C-Reactive Protein 14.1 H (<10.0) mg/L Urine Appearance Cloudy H (Clear) Urine Protein Trace H (Negative) Urine Ketones Trace H (Negative) Urine Blood Trace H (Negative) Ur Leukocyte Esterase Large H (Negative) Urine RBC 11 H (0-5) /hpf Urine WBC 6 H (0-5) /hpf Ur Squamous Epith Cells 17 H (0-4) /hpf Urine Bacteria Few H (None) /hpf Urine Mucus Occasional H (None) /hpf 11/23/19 Range/Units 07:42 RBC (3.80-5.40) m/uL Glucose 105 H (74-99) mg/dL C-Reactive Protein (<10.0) mg/L Urine Appearance (Clear) Urine Protein (Negative) Urine Ketones (Negative) Urine Blood (Negative) Ur Leukocyte Esterase (Negative) Urine RBC (0-5) /hpf Urine WBC (0-5) /hpf Ur Squamous Epith Cells (0-4) /hpf Urine Bacteria (None) /hpf Urine Mucus (None) /hpf Microbiology - Last 24 Hours (Table) 11/22/19 12:37 Urine Culture - Preliminary Urine,Clean Catch Assessment and Plan Assessment: 1- patient presented to hospital with acute abdominal pain nausea vomiting and diarrhea started after she did eat prepackaged chicken high clinical suspicious for food poisoning with a source for her illness 2-Patient with multiple antibiotic ALLERGIES that would limit the number of antibiotic safe to use (1) Gastroenteritis Current Visit: Yes Status: Acute Code(s): K52.9 - NONINFECTIVE GASTROENTERITIS AND COLITIS, UNSPECIFIED SNOMED Code(s): 09398682 Plan: 1- await stool studies to be finalize 2- symptomatic treatment of nausea and diarrhea 3- continue with the Rocephin and Flagyl 4- IV fluids We will follow on clinical condition and cultures to further adjust medication if needed Thank you for this consultation will follow this patient with you Time with Patient: Greater than 30
[2019-11-24 09:30] LABS: Basophils % (A) 0 %; Eosinophils # (A) 0.2 k/uL (0-0.7); Eosinophils % (A) 3 %; HCT 35.6 % (34.0-46.0); HGB 12.1 gm/dL (11.4-16.0); Lymphocytes # (A) 1.4 k/uL (1.0-4.8); Lymphocytes % (A) 18 %; MCH 31.5 pg (25.0-35.0); MCV 92.7 fL (80.0-100.0); Mean Platelet Volume 7.6; Monocytes # (A) 0.3 k/uL (0-1.0); Monocytes % (A) 4 %; Neutrophils # (A) 5.9 k/uL (1.3-7.7); Neutrophils % (A) 74 %; Platelet Count 237 k/uL (150-450); RBC 3.84 m/uL (3.80-5.40); RDW 12.7 % (11.5-15.5)
[2019-11-24 09:39] LABS: African American GFR (CKD) >90 (>60 ml/min/1.73 sqM); Anion Gap 7 mmol/L; Blood Urea Nitrogen 9 mg/dL (7-17); Calcium 8.6 mg/dL (8.4-10.2); Carbon Dioxide 25 mmol/L (22-30); Chloride 107 mmol/L (98-107); Glucose 149 mg/dL (74-99); Non-African American GFR(CKD) >90 (>60 ml/min/1.73 sqM); Potassium 3.8 mmol/L (3.5-5.1); Sodium 139 mmol/L (137-145)
--- NOTE | 2019-11-24 09:49 | P.PN ---
Progress Note - Text Progress Note Date: 11/24/19 The patient states she feels better. She is asking for morning. On exam her vital signs are stable. Abdomen soft. There is decreased tenderness. Resolving enteritis. Patient will be placed on a regular diet. We discussed the discharge home tomorrow.
--- NOTE | 2019-11-25 08:38 | DS ---
DISCHARGE SUMMARY FINAL DIAGNOSES: 1. Abdominal distention, possible acute enteritis. 2. Acute urinary tract infection present on admission. 3. History of previous CVA. 4. History of asthma. 5. Hypertension. 6. History of pneumonia. 7. History of ovarian cyst, history of ovarian rupture bleeding. 8. History of Clostridium difficile, colitis. 9. History of cholecystectomy. 10.History of appendectomy. 11.Anxiety, depression. 12.Possible urinary tract infection. HISTORY OF PRESENT ILLNESS: This 49 -year-old woman with a past medical history of multiple medical problems was admitted with abdomen distention and possible enteritis. Ileus was also a concern. Seen by Infectious Disease and as well as surgery. The patient is extremely keen on going home. CT scan was reviewed. Recommended close outpatient follow up. DISCHARGE INSTRUCTIONS: 1. Diet is cardiac. 2. Activity limited until follow up. 3. Follow up with Dr. Martin Sofia in 1-2 days. 4. Follow up with surgery as recommended. DISCHARGE MEDICATIONS: 1. Celexa 40 mg p.o. daily. 2. Butalbital as before. 3. Fluticasone 2 sprays daily. 4. HydroDIURIL 12.5 mg daily. 5. Lipitor 10 mg q.h.s. 6. Singulair 10 mg q.h.s. 7. Levothyroxine 100 mcg p.o. daily. 8. Albuterol 2 puffs q.i.d. p.r.n. 9. Xanax 0.25 mg b.i.d. p.r.n. 10.Levocetirizine 5 mg p.o. daily. 11.Zestril 10 mg p.o. daily. 12.Zofran 8 mg q.8 p.r.n. 13.Cipro 500 mg p.o. b.i.d. for 5 days. 14.Flagyl 500 mg q.8h for 5 days. DISCHARGE DISPOSITION: The patient will be discharged in stable condition with guarded prognosis. MMODL / IJN: [id number] /
[2019-11-28 17:53] LABS: Calprotectin, Stool <27.1 mcg/g (<50)
== END 2019-11-24 12:45 | disposition home or self-care (01) ==
LOC: EC 11:47 → 1SOBS 17:19 → OBSVTOIN 11-24 10:26 → INTOOBSV 11-24 10:26 → UNDODISOB 11-24 12:45 → UNDODISIN 11-24 12:45
PROVIDERS: ADMIT Hospitalist; ATTEND Hospitalist
DX: R14.0 Abdominal distension (gaseous) (principal); N39.0 Urinary tract infection, site not specified; Z86.73 Personal history of transient ischemic attack (TIA), and cerebral infarction without residual deficits; J45.909 Unspecified asthma, uncomplicated; I10 Essential (primary) hypertension; Z87.01 Personal history of pneumonia (recurrent); Z90.49 Acquired absence of other specified parts of digestive tract; F41.9 Anxiety disorder, unspecified; F32.9 Major depressive disorder, single episode, unspecified; R18.8 Other ascites; R19.7 Diarrhea, unspecified; R11.2 Nausea with vomiting, unspecified; N20.0 Calculus of kidney; Z79.899 Other long term (current) drug therapy; Z88.0 Allergy status to penicillin; Z88.7 Allergy status to serum and vaccine; Z88.1 Allergy status to other antibiotic agents; Z91.040 Latex allergy status; K56.7 Ileus, unspecified; Z79.890 Hormone replacement therapy; Z86.19 Personal history of other infectious and parasitic diseases; Z87.19 Personal history of other diseases of the digestive system; Z87.39 Personal history of other diseases of the musculoskeletal system and connective tissue; Z98.890 Other specified postprocedural states; Z20.828 Contact with and (suspected) exposure to other viral communicable diseases
CPT/HCPCS: 96365; 96366 ×2; 96367; 96375 ×2; 96376 ×4; 96361; 99285; 36415; 87338; 80053; 80048 ×2; 85652; 82150; 83605; 83690; 85025 ×3; 86140; 82272; 81001; 87040; 87324; 83993; 87086; 87045; 83630; 87046; 74018; 74177; G0378 ×3; U0003; J2270; J2405 ×3; J0696 ×2; C9113 ×2; Q9967; 96374

== ENCOUNTER → 2020-03-22 | Day surgery (SDC) | payer BC ==
[2020-03-20 13:24] VITALS: BMI 37.5
[~2020-03-22] MED LIST: LACTATED RINGERS 1,000 ML IV SCH; LIDOCAINE 1% (10MG/ML) FOR IV START INTRADERMA PRN; LIDOCAINE 1% INJ 10MG/ML (20 ML MDV) ONE; PROPOFOL 10 MG/ML 20 ML VIAL IV ONE
[2020-03-22 08:16] VITALS: RESP 16; TEMP 97.6
--- NOTE | 2020-03-22 09:32 | P.PCN ---
Date of Procedure: 03/22/20 Procedure(s) Performed: Brief history: Patient is a pleasant 49-year-old white female scheduled for an elective upper endoscopy as well as colonoscopy as a part of evaluation of intermittent episodes of severe epigastric pain associated with alternating diarrhea and constipation for the last 1 year duration. He she was admitted hospital in October of this year and had a CT of abdomen and pelvis done that showed prominent fluid-filled small bowel throughout and sent. Subsequently symptoms have resol meme. She has these symptoms intermittently. She is hence scheduled for an upper endoscopy to evaluate further. Procedure performed: Esophagogastroduodenoscopy with biopsy Colonoscopy Preoperative diagnosis: Epigastric pain and change in bowel habits Anesthesia: MAC Procedure: After informed consent was obtained from the patient was brought into the endoscopy unit and IV sedation was administered by anesthesia under continuous monitoring. Initially upper endoscopy was done. The Olympus GF 160 video endoscope was inserted inserted into the mouth and esophagus intubated without any difficulty and was gradually advanced into the stomach and duodenum and carefully examined. The bulb and second part of the duodenum appeared normal. Abscesses were done from the duodenum to rule out celiac disease. The scope was then withdrawn into the stomach adequately insufflated with air and upon careful examination the antrum had multiple scattered erosions and biopsies were done from this area. The body, cardia and fundus appeared normal. The scope was then withdrawn into the esophagus. The GE junction was located at 40 cm to the incisors. It appeared regular with n islet erythema consistent with LA grade a reflux esophagitis. Rest of the esophagus appeared normal. Patient tolerated the procedure well. At this time the patient continued to remain sedation. Initial digital rectal examination was normal. Olympus CF 160 video colonoscope was then inserted into the rectum and gradually advanced to the cecum without any difficulty. Careful examination was performed as the scope was gradually being withdrawn. The prep was excellent. The cecum, ascending colon, transverse colon, descending colon, sigmoid colon and rectum appeared normal. Retroflexion was performed in the rectum and no lesions were noted. Patient tolerated the procedure well. Impression: 1. Upper endoscopy revealed antral erosive gastritis and LA grade a reflux esophagitis 2. Colonoscopy was within normal limits with no evidence of colitis or colorectal neoplasia Recommendations: Findings of this examination were discussed with the patient as well as, family. She was advised to follow with the biopsy results. She'll be started on Prilosec 20 mg daily and was briefly educated about antireflux measures. she'll be seen in office in 2-3 weeks.
[2020-03-22 09:50] VITALS: BP 120/79; PULSE 71
== END ==
LOC: ORWHC2ENDO 07:06
PROVIDERS: ATTEND Internal Medicine Gastroenterology
DX: R19.7 Diarrhea, unspecified (principal); K59.00 Constipation, unspecified; K29.50 Unspecified chronic gastritis without bleeding; K21.00 Gastro-esophageal reflux disease with esophagitis, without bleeding; I10 Essential (primary) hypertension; E78.5 Hyperlipidemia, unspecified; E07.9 Disorder of thyroid, unspecified; Z91.040 Latex allergy status; Z88.1 Allergy status to other antibiotic agents; Z88.0 Allergy status to penicillin; Z88.7 Allergy status to serum and vaccine; Z79.899 Other long term (current) drug therapy
CPT/HCPCS: 81025; 88305; 45378; 43239; J2001; J2704

== ENCOUNTER → 2020-06-27 | Outpatient (CLI) | payer BC ==
--- NOTE | 2020-06-28 14:24 | MM ---
Reason for exam: screening (asymptomatic). Last mammogram was performed 1 year and 4 months ago. History: Took hormonal contraceptives for 7 years beginning at age 18. Physical Findings: A clinical breast exam by your physician is recommended on an annual basis and results should be correlated with mammographic findings. MG 3D Screening Mammo W/Cad Bilateral CC and MLO view(s) were taken. Prior study comparison: February 28, 2019, bilateral MG 3d screening mammo w/cad. February 15, 2018, bilateral MG 3d screening mammo w/cad. The breast tissue is heterogeneously dense. This may lower the sensitivity of mammography. There is no discrete abnormality. No significant changes when compared with prior studies. ASSESSMENT: Negative, BI-RAD 1 RECOMMENDATION: Routine screening mammogram of both breasts in 1 year.
== END | disposition home or self-care (01) ==
LOC: RADMAMWWP 07:46
PROVIDERS: ATTEND Obstetrics & Gynecology
DX: Z12.31 Encounter for screening mammogram for malignant neoplasm of breast (principal)
CPT/HCPCS: 77063; 77067

== ENCOUNTER → 2020-07-15 | Outpatient (CLI) | payer BC ==
--- NOTE | 2020-07-16 09:08 | XR ---
EXAMINATION TYPE: XR foot complete LT DATE OF EXAM: 07/15/2020 COMPARISON: None HISTORY: Pain TECHNIQUE: Three-view left foot FINDINGS: No acute fracture or dislocation is evident. Joint spaces are preserved. There may be some mild dorsal soft tissue prominence. Plantar calcaneal heel spur is present. Alignment of the osseous structures appears normal. Follow-up exams can be performed 7-10 days from acute trauma for continued pain. IMPRESSION: 1. No acute osseous abnormality left foot. 2. Mild soft tissue swelling.
== END | disposition home or self-care (01) ==
LOC: RADXRMAIN 16:00
PROVIDERS: ATTEND Nurse Practitioner Family
DX: M79.89 Other specified soft tissue disorders (principal)

== ENCOUNTER → 2020-07-30 | Outpatient (CLI) | payer BC | END | disposition home or self-care (01) | LOC: LABWHC1 16:45 | PROVIDERS: ATTEND Family Medicine | DX: Z20.822 Contact with and (suspected) exposure to COVID-19 (principal) | CPT/HCPCS: U0003; U0005 ==

== ENCOUNTER → 2020-08-02 | Outpatient (CLI) | payer BC | END | disposition home or self-care (01) | LOC: LABWHC1 15:54 | PROVIDERS: ATTEND Family Medicine | DX: Z20.822 Contact with and (suspected) exposure to COVID-19 (principal) | CPT/HCPCS: U0003; U0005 ==

== ENCOUNTER → 2020-08-06 | Outpatient (CLI) | payer BC ==
--- NOTE | 2020-08-06 14:56 | XR ---
EXAMINATION TYPE: XR chest 2V DATE OF EXAM: 08/06/2020 COMPARISON: Chest x-ray April 22, 2016 HISTORY: History of asthma with shortness of breath. TECHNIQUE: Frontal and lateral views of the chest are obtained. FINDINGS: There is no focal air space opacity, pleural effusion, or pneumothorax seen. The cardiac silhouette size is within normal limits. The osseous structures are intact. Cholecystectomy clips r edemonstrated on lateral view. IMPRESSION: No acute cardiopulmonary process. No significant change from prior.
== END ==
LOC: RADXRMAIN 14:26
PROVIDERS: ATTEND Nurse Practitioner Family
DX: J45.909 Unspecified asthma, uncomplicated (principal)
CPT/HCPCS: 71046

== ENCOUNTER → 2020-09-02 | Outpatient (CLI) | payer BC | END | disposition home or self-care (01) | LOC: LABWHC1 11:37 | PROVIDERS: ATTEND Internal Medicine Critical Care Medicine | DX: J45.909 Unspecified asthma, uncomplicated (principal) | CPT/HCPCS: 36415; 85008 ==

== ENCOUNTER 2020-09-14 12:23 | Emergency (ER) | payer BC ==
[2020-09-14 13:47] LABS: Basophils % (A) 1 %; Eosinophils # (A) 0.2 k/uL (0-0.7); Eosinophils % (A) 3 %; HCT 38.9 % (34.0-46.0); HGB 13.9 gm/dL (11.4-16.0); Lymphocytes # (A) 1.2 k/uL (1.0-4.8); Lymphocytes % (A) 22 %; MCH 31.9 pg (25.0-35.0); MCHC 35.7 g/dL (31.0-37.0); MCV 89.3 fL (80.0-100.0); Mean Platelet Volume 7.4; Monocytes # (A) 0.2 k/uL (0-1.0); Monocytes % (A) 4 %; Neutrophils # (A) 3.9 k/uL (1.3-7.7); Neutrophils % (A) 69 %; Platelet Count 240 k/uL (150-450); RBC 4.36 m/uL (3.80-5.40); RDW 12.6 % (11.5-15.5); WBC 5.7 k/uL (3.8-10.6)
--- NOTE | 2020-09-14 13:49 | ED ---
URI HPI - General Source: patient Mode of arrival: ambulatory Limitations: no limitations <Terri Silveira - Last Filed: 09/14/20 13:45> <Josh Judge - Last Filed: 09/14/20 15:41> - General Chief Complaint: Upper Respiratory Infection Stated Complaint: COVID +, Wants BAM Time Seen by Provider: 09/14/20 12:53 - History of Present Illness Initial Comments: 42-year-old female presents today for chief complaint of p.m. infusion. Patient states that she has had cold-like symptoms for the past 7 days she states she recently tested positive today and was told to come to the ER for infusion of monoclonal Ab. Patient states her symptoms were fevers chills body aches occasional headaches. Patient states she also noted that she had some left calf pain was concerned about deep venous thrombosis. Patient denies any chest pain, pain with deep inspiration, hemoptysis, shortness of breath<. pt denies hx of DVT/PE. Patient appears well nontoxic upon arrival in no acute distress. (Terri Silveira) - Related Data Home Medications Medication Instructions Recorded Confirmed ALPRAZolam [Xanax] 0.25 mg PO BID PRN 11/22/19 03/22/20 Albuterol Inhaler [Ventolin Hfa 2 puff INHALATION RT-QID PRN 11/22/19 03/22/20 Inhaler] Atorvastatin Calcium [Lipitor] 10 mg PO HS 11/22/19 03/22/20 Citalopram Hydrobromide [CeleXA] 40 mg PO DAILY 11/22/19 03/22/20 Levocetirizine Dihydrochloride 5 mg PO DAILY 11/22/19 03/22/20 [Xyzal] Levothyroxine Sodium [Tirosint] 100 mcg PO QAM 11/22/19 03/22/20 Lisinopril [Zestril] 10 mg PO BID 11/22/19 03/22/20 Montelukast Sodium [Singulair] 10 mg PO HS 11/22/19 03/22/20 hydroCHLOROthiazide [Hydrodiuril] 12.5 mg PO DAILY 11/22/19 03/22/20 Butalb/Acetaminophen/Caffeine 1 - 2 cap PO Q4HR PRN 03/20/20 03/22/20 [Fioricet 50-300-40 mg Capsule] Allergies Allergy/AdvReac Type Severity Reaction Status Date / Time clarithromycin [From Biaxin] Allergy Abdominal Verified 09/14/20 12:37 Pain Influenza Virus Vaccines Allergy Dyspnea Verified 09/14/20 12:37 latex Allergy Rash/Hives Verified 09/14/20 12:37 Penicillins Allergy Rash/Hives Verified 09/14/20 12:37 Review of Systems ROS Other: All systems not noted in ROS Statement are negative. <Terri Silveira - Last Filed: 09/14/20 13:45> ROS Other: All systems not noted in ROS Statement are negative. <Josh Judge - Last Filed: 09/14/20 15:41> ROS Statement: Those systems with pertinent positive or pertinent negative responses have been documented in the HPI. Past Medical History Past Medical History: Asthma, Hyperlipidemia, Hypertension, Pneumonia, Thyroid Disorder Additional Past Medical History / Comment(s): Hx Ileus after Cholecystectomy, current ovarian cysts, hx ruptured ovarian cysts with ascites. Hx H Pylori, gastroentritis, ascites of liver. Hx kidney stones. Recurrent abd issues. History of Any Multi-Drug Resistant Organisms: C-DIFF Date of last positivie culture/infection: 2013 MDRO Source:: stool Past Surgical History: Appendectomy, Cholecystectomy, Orthopedic Surgery, Tubal Ligation, Uterine Ablation Additional Past Surgical History / Comment(s): Bilateral Carpal Tunnel surgery, varicose vein surgery, left knee arthroscopy, ovarian cyst cauterized, left lithotripsy X2. Past Anesthesia/Blood Transfusion Reactions: Previous Problems w/ Anesthesia Additional Past Anesthesia/Blood Transfusion Reaction / Comment(s): Slow to wake up. Past Psychological History: Anxiety, Depression Smoking Status: Never smoker Past Alcohol Use History: Rare Past Drug Use History: None Reported - Past Family History Father Family Medical History: Cancer Additional Family Medical History / Comment(s): Prostate Cancer. Sister(s) Family Medical History: Cancer Additional Family Medical History / Comment(s): Lymphoma. <Terri Silveira - Last Filed: 09/14/20 13:45> General Exam Limitations: no limitations <Terri Silveira - Last Filed: 09/14/20 13:45> - General Exam Comments Initial Comments: General: The patient is awake and alert, in no distress, and does not appear acutely ill. Eye: Pupils are equal, round and reactive to light, extra-ocular movements are intact. No nystagmus. There is normal conjunctiva bilaterally. No signs of icterus. Ears, nose, mouth and throat: There are moist mucous membranes and no oral lesions. Neck: The neck is supple, there is no tenderness or JVD. Cardiovascular: There is a regular rate and rhythm. No murmur, rub or gallop is appreciated. Respiratory: Lungs are clear to auscultation, respirations are non-labored, breath sounds are equal. No wheezes, stridor, rales, or rhonchi. Musculoskeletal: Normal ROM, no tenderness. Strength 5/5. Sensation intact. Pulses equal bilaterally 2+. Neurological: A&O x 3. CN II-XII intact grossly, There are no obvious motor or sensory deficits. Coordination appears grossly intact. Speech is normal. Skin: Skin is warm and dry and no rashes or lesions are noted. No calf swelling appreciated. legs equal. Psychiatric: Cooperative, appropriate mood & affect, normal judgment. (Terri Silveira) Course Vital Signs 09/14/20 09/14/20 09/14/20 12:32 13:03 14:00 Temperature 98.4 F 99.3 F Pulse Rate 98 85 Respiratory 18 20 18 Rate Blood Pressure 119/83 120/80 O2 Sat by Pulse 97 96 Oximetry Medical Decision Making <Terri Silveira - Last Filed: 09/14/20 13:45> - Lab Data Result diagrams: 09/14/20 13:33 09/14/20 13:33 - Radiology Data Radiology results: report reviewed (Ultrasound negative for DVT), image reviewed (Chest x-ray shows no acute process) <Josh Judge - Last Filed: 09/14/20 15:41> - Medical Decision Making Pt signed out pending. US and BAM infusion. At this time if the venous ultrasound was negative and no reaction to the monoclonal antibody infusion for disposition is discharge. Patient appears well nontoxic she is in no acute distress spell since then except limits. (Terri Silveira) - Lab Data Lab Results 09/14/20 09/14/20 09/14/20 Range/Units 13:33 13:33 13:33 WBC 5.7 (3.8-10.6) k/uL RBC 4.36 (3.80-5.40) m/uL Hgb 13.9 (11.4-16.0) gm/dL Hct 38.9 (34.0-46.0) % MCV 89.3 (80.0-100.0) fL MCH 31.9 (25.0-35.0) pg MCHC 35.7 (31.0-37.0) g/dL RDW 12.6 (11.5-15.5) % Plt Count 240 (150-450) k/uL MPV 7.4 Neutrophils % 69 % Lymphocytes % 22 % Monocytes % 4 % Eosinophils % 3 % Basophils % 1 % Neutrophils # 3.9 (1.3-7.7) k/uL Lymphocytes # 1.2 (1.0-4.8) k/uL Monocytes # 0.2 (0-1.0) k/uL Eosinophils # 0.2 (0-0.7) k/uL Basophils # 0.0 (0-0.2) k/uL PT 10.2 (9.0-12.0) sec INR 0.9 (<1.2) APTT 23.0 (22.0-30.0) sec Sodium 137 (137-145) mmol/L Potassium 4.3 (3.5-5.1) mmol/L Chloride 104 (98-107) mmol/L Carbon Dioxide 25 (22-30) mmol/L Anion Gap 8 mmol/L BUN 17 (7-17) mg/dL Creatinine 0.95 (0.52-1.04) mg/dL Est GFR (CKD-EPI)AfAm 82 (>60 ml/min/1.73 sqM) Est GFR (CKD-EPI)NonAf 72 (>60 ml/min/1.73 sqM) Glucose 111 H (74-99) mg/dL Calcium 9.1 (8.4-10.2) mg/dL Total Bilirubin 0.4 (0.2-1.3) mg/dL AST 74 H (14-36) U/L ALT 42 H (4-34) U/L Alkaline Phosphatase 105 (38-126) U/L Total Protein 7.4 (6.3-8.2) g/dL Albumin 4.6 (3.5-5.0) g/dL Disposition <Terri Silveira - Last Filed: 09/14/20 13:45> Is patient prescribed a controlled substance at d/c from ED?: No Time of Disposition: 15:41 <Josh Judge - Last Filed: 09/14/20 15:41> Clinical Impression: COVID-19 Disposition: HOME SELF-CARE Condition: Stable Instructions (If sedation given, give patient instructions): Upper Respiratory Infection (ED), Fever in Adults (ED) Additional Instructions: Please follow-up with primary care physician in the next day or 2 for recheck. [id number] Tylenol as needed. [id number] vitamin C, vitamin D, and zinc. Please call into yourself for 14 days from the onset of symptoms and at least 24 hours fever free. Referrals: Martin Sofia MD [Primary Care Provider] - 1-2 days
[2020-09-14 13:57] LABS: Albumin 4.6 g/dL (3.5-5.0); Calcium 9.1 mg/dL (8.4-10.2); Potassium 4.3 mmol/L (3.5-5.1); Total Bilirubin 0.4 mg/dL (0.2-1.3); Total Protein 7.4 g/dL (6.3-8.2)
[2020-09-14 14:06] LABS: INR 0.9 (<1.2); Prothrombin Time 10.2 sec (9.0-12.0)
[2020-09-14] MEDS ORDERED: SODIUM CHLORIDE 0.9% 50 ML IVPB ONE (14:15)
[2020-09-14 14:24] VITALS: PULSE 85; RESP 18
[2020-09-14] MEDS ORDERED: BAMLANIVIMAB (EUA) 700 MG, ETESEVIMAB (EUA) 1,400 MG in SODIUM CHLORIDE 0.9% 50 ML IVPB ONE (14:30)
--- NOTE | 2020-09-14 14:54 | US ---
EXAMINATION TYPE: US venous doppler duplex LE LT DATE OF EXAM: 09/14/2020 2:35 PM COMPARISON: NONE CLINICAL HISTORY: calf pain. Covid +. No redness. No swelling. SIDE PERFORMED: Left TECHNIQUE: The lower extremity deep venous system is examined utilizing real time linear array sonog minor with graded compression, doppler sonography and color-flow sonography. VESSELS IMAGED: Common Femoral Vein Deep Femoral Vein Greater Saphenous Vein * Femoral Vein Popliteal Vein Small Saphenous Vein * Proximal Calf Veins (* superficial vessels) Left Leg: Negative for DVT IMPRESSION: No evidence of deep vein thrombosis in the left leg.
[2020-09-14 15:48] VITALS: BP 111/75; TEMP 99.4
== END 2020-09-14 16:00 | disposition home or self-care (01) ==
LOC: EC 12:23
DX: U07.1 COVID-19 (principal); E78.5 Hyperlipidemia, unspecified; F32.9 Major depressive disorder, single episode, unspecified; F41.9 Anxiety disorder, unspecified; I10 Essential (primary) hypertension; J45.909 Unspecified asthma, uncomplicated; Z88.0 Allergy status to penicillin
CPT/HCPCS: 36415; 80053; 85025; 85610; 85730; 93971; 99284; 96365; Q0245

== ENCOUNTER → 2021-01-14 | Outpatient (CLI) | payer BC ==
--- NOTE | 2021-01-15 07:01 | XR ---
EXAMINATION TYPE: XR Hip Bilateral Complete DATE OF EXAM: 01/14/2021 CLINICAL HISTORY: pain TECHNIQUE: Bilateral views of the hips are obtained. COMPARISON: None. FINDINGS: There is no acute fracture/dislocation evident. The joint space appears within normal li mits. The overlying soft tissue appears unremarkable. IMPRESSION: 1. There is no acute fracture or dislocation. ICD 10 NO FRACTURE, INITIAL EVALUATION
--- NOTE | 2021-01-15 08:16 | XR ---
EXAMINATION TYPE: XR lumbosacral spine min 4V DATE OF EXAM: 01/14/2021 CLINICAL HISTORY: pain COMPARISON: NONE TECHNIQUE: Frontal, lateral, and oblique images of the lumbar spine are obtained. FINDINGS: There are 5 lumbar type vertebral bodies identified. The lumbar spine shows satisfactory alignment without evidence of acute fracture or dislocation. Vertebral body heights are within normal limits. Moderate degenerative narrowing L5-S1. Bilateral nephrolithiasis. IMPRESSION: No acute fracture or dislocation is seen in the lumbar spine.ICD 10 NO FRACTURE, INITIAL EVALUATION
== END | disposition home or self-care (01) ==
LOC: RADXRMAIN 15:34
PROVIDERS: ATTEND Family Medicine
DX: M54.31 Sciatica, right side (principal); M25.551 Pain in right hip
CPT/HCPCS: 72110; 73521

== ENCOUNTER → 2021-07-14 | Outpatient (CLI) | payer BC ==
--- NOTE | 2021-07-14 16:12 | US ---
EXAMINATION TYPE: US venous doppler duplex LE LT DATE OF EXAM: 07/14/2021 3:54 PM COMPARISON: 09/14/2020 CLINICAL HISTORY: 51-year-old female M79.662 PAIN IN LT LOWER LEG. Varicose Veins left lower leg. SIDE PERFORMED: Left TECHNIQUE: The lower extremity deep venous system is examined utilizing real time linear array sonog minor with graded compression, doppler sonography and color-flow sonography. FINDINGS: VESSELS IMAGED: Common Femoral Vein Deep Femoral Vein Greater Saphenous Vein * Femoral Vein Popliteal Vein Small Saphenous Vein * Proximal Calf Veins Mid posterior tibial veins (* superficial vessels) Left Leg: Negative for DVT. Dilated, tortuous varicose veins noted lower leg. IMPRESSION: 1. No evidence for DVT within the left lower extremity imaged from the groin to the mid calf. 2. Incidental tortuous superficial varicosities at the mid calf.
[2021-07-15 02:57] LABS: Basophils # (A) 0.06 X 10*3/uL (0.00-0.10); Basophils % (A) 0.6 %; Eosinophils % (A) 3.7 %; HCT 39.4 % (37.2-46.3); Immature Grans, Automated 0.5 %; Lymphocytes # (A) 2.74 X 10*3/uL (0.90-5.00); Lymphocytes % (A) 25.2 %; MCH 30.8 pg (27.0-32.0); MCV 93.4 fL (80.0-97.0); Mean Platelet Volume 10.7 fL (9.5-12.2); Monocytes # (A) 0.82 X 10*3/uL (0.20-1.00); Monocytes % (A) 7.5 %; NRBC Per 100 WBC 0 /100 WBCS (0.0-0.0); Neutrophils % (A) 62.5 %; Platelet Count 363 X 10*3/uL (140-440); RBC 4.22 X 10*6/uL (4.10-5.20); RDW 12.8 % (11.5-14.5); WBC 10.87 X 10*3/uL (4.50-10.00)
[2021-07-15 04:17] LABS: ALT 17 U/L (8-44); AST 18 U/L (13-35); African American GFR (CKD) 78.8 (60.0-200.0); Albumin 4.8 g/dL (3.8-4.9); Albumin/Globulin Ratio 2.17 (1.60-3.17); Alkaline Phosphatase 108 U/L (41-126); BUN/Creat Ratio 20.16 Ratio (12.00-20.00); Blood Urea Nitrogen 19.7 mg/dL (9.0-27.0); C Reactive Protein <0.30 mg/dL (0.00-0.80); Carbon Dioxide 24.3 mmol/L (20.0-27.5); Chloride 100 mmol/L (96-109); Chol/HDL Ratio 4.55 Ratio; Globulin 2.2 g/dL (1.6-3.3); Glucose 96 mg/dL (70-110); Potassium 4.5 mmol/L (3.5-5.5); Sodium 141 mmol/L (135-145); Total Bilirubin <0.15 mg/dL (0.30-1.20)
[2021-07-15 10:44] LABS: Erythrocyte Sedimentation Rate 7 mm/Hr (0-20)
== END | disposition home or self-care (01) ==
LOC: RADUSWWP 15:24
PROVIDERS: ATTEND Family Medicine
DX: I83.812 Varicose veins of left lower extremity with pain (principal); R73.9 Hyperglycemia, unspecified; R53.83 Other fatigue
CPT/HCPCS: 80053; 80061; 82306; 83036; 84439; 84443; 85025; 85379; 85652; 86140

== ENCOUNTER → 2021-07-21 | Outpatient (CLI) | payer BC ==
--- NOTE | 2021-07-23 13:15 | MM ---
Reason for exam: screening (asymptomatic). Last mammogram was performed 1 year and 1 month ago. History: Patient is postmenopausal. Took hormonal contraceptives for 7 years beginning at age 18. Physical Findings: A clinical breast exam by your physician is recommended on an annual basis and results should be correlated with mammographic findings. MG 3D Screening Mammo W/Cad Bilateral CC and MLO view(s) were taken. Prior study comparison: June 27, 2020, bilateral MG 3d screening mammo w/cad. February 28, 2019, bilateral MG 3d screening mammo w/cad. There are scattered fibroglandular densities. No significant changes when compared with prior studies. ASSESSMENT: Negative, BI-RAD 1 RECOMMENDATION: Routine screening mammogram of both breasts in 1 year.
== END | disposition home or self-care (01) ==
LOC: RADMAMWWP 11:07
PROVIDERS: ATTEND Obstetrics & Gynecology
DX: Z12.31 Encounter for screening mammogram for malignant neoplasm of breast (principal); Z78.0 Asymptomatic menopausal state
CPT/HCPCS: 77063; 77067

== ENCOUNTER → 2022-10-15 | Outpatient (CLI) | payer BC ==
--- NOTE | 2022-10-15 17:27 | XR ---
EXAMINATION TYPE: XR chest 2V DATE OF EXAM: 10/15/2022 COMPARISON: 08/06/2020 HISTORY: 52 year-old female R05.9, cough TECHNIQUE: Frontal and lateral views FINDINGS: The cardiomediastinal silhouette, aorta, and pulmonary vasculature are within normal limits. Lungs an d pleural spaces are clear. IMPRESSION: No acute cardiopulmonary process.
== END | disposition home or self-care (01) ==
LOC: RADXRMAIN 12:16
PROVIDERS: ATTEND Family Medicine
DX: R05.9 Cough, unspecified (principal)
CPT/HCPCS: 71046

== ENCOUNTER → 2022-11-24 | Outpatient (CLI) | payer BC | END | disposition home or self-care (01) | LOC: LABWHC1 09:53 | PROVIDERS: ATTEND Otolaryngology | DX: E03.9 Hypothyroidism, unspecified (principal) | CPT/HCPCS: 36415; 86376 ==

== ENCOUNTER → 2023-07-14 | Outpatient (CLI) | payer BC ==
--- NOTE | 2023-07-14 12:12 | XR ---
Two-view left hip. DATE: 07/14/2023. COMPARISON: None available. Clinical history: Worsening hip pain. FINDINGS: There is no fracture, subluxation or dislocation. The hip joint space is are preserved. IMPRESSION: No acute osseous abnormality or significant degenerative changes.
== END | disposition home or self-care (01) ==
LOC: RADXRMAIN 11:36
PROVIDERS: ATTEND Nurse Practitioner Family
DX: M25.552 Pain in left hip (principal)
CPT/HCPCS: 73502

== ENCOUNTER → 2023-08-03 | Outpatient (CLI) | payer BC ==
--- NOTE | 2023-08-04 18:34 | MM ---
Reason for Exam: Screening (asymptomatic). Last mammogram was performed 1 year(s) and 1 month(s) ago. Patient History: Menarche at age 18. First Full-Term at age 24. Postmenopausal. Hormonal Contraceptives for 7 years from age 18 until age 25. Risk Values: Dahlia 5 year model risk: 0.8%. NCI Lifetime model risk: 7.2%. Prior Study Comparison: 06/27/2020 Bilateral Screening Mammogram, [facility]. 07/21/2021 Bilateral Screening Mammogram, [facility]. 07/28/2022 Bilateral MG 3D screening mammo w/cad, [facility]. Tissue Density: There are scattered areas of fibroglandular density. Findings: Analyzed By CAD. Unchanged asymmetric density outer aspect of the right breast on the CC view. There is no suspicious group of microcalcifications or new suspicious mass in either breast. Overall Assessment: Benign, BI-RAD 2 Management: Screening Mammogram of both breasts in 1 year. . Patient should continue monthly self-breast exams. A clinical breast exam by your physician is recommended on an annual basis. This exam should not preclude additional follow-up of suspicious palpable abnormalities. Note on Dahlia scores and lifetime risk: 1. A Dahlia score greater than 3% is considered moderate risk. If this is the case, consider specialist referral to assess eligibility for a risk reducing agent. 2. If overall lifetime risk for the development of breast cancer is 20% or higher, the patient may qualify for future screening with alternating mammogram and breast MRI. Electronically signed and approved by: Joseph Givens M.D. Radiologist
== END | disposition home or self-care (01) ==
LOC: RADMAMWWP 12:35
PROVIDERS: ATTEND Family Medicine
DX: Z12.31 Encounter for screening mammogram for malignant neoplasm of breast (principal); Z78.0 Asymptomatic menopausal state
CPT/HCPCS: 77063; 77067

== ENCOUNTER → 2024-02-07 | Outpatient (CLI) | payer BC ==
[2024-02-07 18:20] LABS: HCT 39.4 % (37.2-46.3); MCH 30.6 pg (27.0-32.0); MCV 92.7 FL (80.0-97.0); Mean Platelet Volume 10.7 FL (9.5-12.2); NRBC Per 100 WBC 0 X 10*3/uL (0.00-0.01); Platelet Count 356 X 10*3/uL (140-440); RBC 4.25 X 10*6/uL (4.10-5.20); RDW 12.6 % (11.5-14.5); WBC 6.29 X 10*3/uL (4.50-10.00)
[2024-02-07 19:16] LABS: INR 0.99 sec (0.93-1.11); Prothrombin Time 10.7 sec (9.9-11.9)
[2024-02-07 19:26] LABS: ALT 18 U/L (8-44); AST 28 U/L (13-35); Albumin 4.8 g/dL (3.8-4.9); Albumin/Globulin Ratio 2.09 Ratio (1.60-3.17); Alkaline Phosphatase 121 U/L (41-126); BUN/Creat Ratio 17.83 Ratio (12.00-20.00); Blood Urea Nitrogen 21.4 mg/dL (9.0-27.0); Calcium 9.8 mg/dL (8.7-10.3); Carbon Dioxide 24.8 mmol/L (21.6-31.8); Chloride 101 mmol/L (96-109); Globulin 2.3 g/dL (1.6-3.3); Glucose 109 mg/dL (70-110); Potassium 4.3 mmol/L (3.5-5.5); Sodium 139 mmol/L (135-145); Total Bilirubin 0.5 mg/dL (0.3-1.2); Total Protein 7.1 g/dL (6.2-8.2)
== END | disposition home or self-care (01) ==
LOC: LABWHC1 13:44
PROVIDERS: ATTEND Internal Medicine Gastroenterology
DX: E66.9 Obesity, unspecified (principal); E11.9 Type 2 diabetes mellitus without complications; E78.5 Hyperlipidemia, unspecified; I10 Essential (primary) hypertension; R93.3 Abnormal findings on diagnostic imaging of other parts of digestive tract; R19.4 Change in bowel habit
CPT/HCPCS: 36415; 80053; 82105; 85027; 85610

== ENCOUNTER → 2024-09-05 | Outpatient (CLI) | payer BC ==
--- NOTE | 2024-09-05 15:55 | MM ---
Reason for Exam: Screening (asymptomatic). Last mammogram was performed 1 year(s) and 1 month(s) ago. Patient History: Menarche at age 18. First Full-Term at age 24. Postmenopausal. Hormonal Contraceptives for 7 years from age 18 until age 25. Risk Values: Dahlia 5 year model risk: 0.9%. NCI Lifetime model risk: 7.1%. Prior Study Comparison: 07/21/2021 Bilateral Screening Mammogram, [facility]. 07/28/2022 Bilateral MG 3D screening mammo w/cad, [facility]. 08/03/2023 Bilateral MG 3D screening mammo w/cad, [facility]. Tissue Density: There are scattered areas of fibroglandular density. Findings: Analyzed By CAD. There is no suspicious group of microcalcifications or new suspicious mass in either breast. Overall Assessment: Benign, BI-RAD 2 Management: Screening Mammogram of both breasts in 1 year. Patient should continue monthly self-breast exams. A clinical breast exam by your physician is recommended on an annual basis. This exam should not preclude additional follow-up of suspicious palpable abnormalities. Note on Dahlia scores and lifetime risk: 1. A Dahlia score greater than 3% is considered moderate risk. If this is the case, consider specialist referral to assess eligibility for a risk reducing agent. 2. If overall lifetime risk for the development of breast cancer is 20% or higher, the patient may qualify for future screening with alternating mammogram and breast MRI. [facility], , 09/05/2024 3:51 PM. Electronically signed and approved by: Joseph Givens M.D. Radiologist
== END | disposition home or self-care (01) ==
LOC: RADMAMWWP 14:29
PROVIDERS: ATTEND Obstetrics & Gynecology
DX: Z12.31 Encounter for screening mammogram for malignant neoplasm of breast (principal); R92.323 Mammographic fibroglandular density, bilateral breasts; Z78.0 Asymptomatic menopausal state; Z92.0 Personal history of contraception
CPT/HCPCS: 77063; 77067